=== PATIENT | female | born 1970 | race African-American/Black ===

== ENCOUNTER 2018-05-20 17:51 | Emergency (ER) | payer MEDICAID ==
[~2018-05-20] VITALS: Ht 165.1 cm; Wt 67.1 kg
[2018-05-20 18:39] VITALS: BP 156/76
[2018-05-20] MEDS ORDERED: NAPROXEN 500 MG TABLET PO STA (19:33)
[2018-05-20] MEDS ORDERED: CYCL10TA2 PO (19:34)
[2018-05-20] MEDS ORDERED: NAPR-514 PO (19:34)
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
[2018-05-20] MEDS ORDERED: CYCLOBENZAPRINE 10 MG TABLET. PO ONE (19:45)
== END 2018-05-20 19:41 | disposition home or self-care (01) ==
LOC: ER 17:51
DX: S16.1XXA Strain of muscle, fascia and tendon at neck level, initial encounter (principal); M25.512 Pain in left shoulder; M25.511 Pain in right shoulder; E11.9 Type 2 diabetes mellitus without complications; I10 Essential (primary) hypertension; Z88.8 Allergy status to other drugs, medicaments and biological substances; Z98.890 Other specified postprocedural states; V43.62XA Car passenger injured in collision with other type car in traffic accident, initial encounter; Y93.89 Activity, other specified; Y92.410 Unspecified street and highway as the place of occurrence of the external cause; Y99.8 Other external cause status
CPT/HCPCS: 99283

== ENCOUNTER 2019-06-16 13:11 | Emergency (ER) | payer OTHER ==
[~2019-06-16] VITALS: Ht 165.1 cm; Wt 65.0 kg
[~2019-06-16 13:11] MED LIST: CYCL10TA2 PO; NAPR-514 PO
--- NOTE | 2019-06-16 13:54 | PHYS DOC ---
Past Medical History Past Medical History: Diabetes-Type II, Hypertension Past Surgical History: Additional Past Surgical Histo: HERNIA Smoking Status: Current Every Day Smoker Alcohol Use: None Drug Use: None Adult General Chief Complaint Chief Complaint: COUGH HPI HPI Patient is a 48 year old Female who presents with runny nose, headache, dry cough x3 days. Patient denies fever, chest pain, shortness of air, abdominal pain, nausea, vomiting, weakness, diarrhea, dizziness, vision changes, numbness or tingling, recent travel, around anybody else is been sick. Patient states that when she coughs her chest hurts. She rates her pain and discomfort at a 6 out of 10. She has not taken any medications today. Review of Systems Review of Systems HENT: nasal congestion or denies sore throat [] Respiratory: cough or denies shortness of breath [] Neurologic: headache, denies focal weakness or sensory changes [] All other systems were reviewed and found to be within normal limits, except as documented in this note. Current Medications Current Medications Current Medications Medications (Trade) Dose Ordered Sig/Ame Start Time Stop Time Status Last Admin Dose Admin Insulin Human Regular (HumuLIN R VIAL) 10 unit 1X ONCE 06/16/19 14:45 06/16/19 14:54 DC 06/16/19 15:19 10 UNIT Sodium Chloride 1,000 ml @ 1,000 mls/hr 1X ONCE 06/16/19 14:45 06/16/19 15:44 DC 06/16/19 14:45 1,000 MLS/HR Allergies Allergies Allergies Coded Allergies Type Severity Reaction Last Updated Verified SUNDEEP Inhibitors Allergy Unknown 05/20/18 Yes chlorpromazine Allergy Unknown 05/20/18 Yes diphenhydramine Allergy Unknown 05/20/18 Yes lisinopril Allergy Unknown 05/20/18 Yes Physical Exam Physical Exam Constitutional: Well developed, well nourished, no acute distress, non-toxic appearance. [] HENT: Normocephalic, atraumatic, bilateral external ears normal, oropharynx moist, no oral exudates, nose normal. [] Eyes: PERRLA, EOMI, conjunctiva normal, no discharge. [] Neck: Normal range of motion, no tenderness, supple, no stridor. [] Cardiovascular:Heart rate regular rhythm, no murmur [] Lungs & Thorax: Bilateral breath sounds clear to auscultation [] Abdomen: Bowel sounds normal, soft, no tenderness, no masses, no pulsatile masses. [] Skin: Warm, dry, no erythema, no rash. [] Back: No tenderness, no CVA tenderness. [] Extremities: No tenderness, no cyanosis, no clubbing, ROM intact, no edema. [] Neurologic: Alert and oriented X 3, normal motor function, normal sensory function, no focal deficits noted. [] Psychologic: Affect normal, judgement normal, mood normal. Normal Physical Exam [] Current Patient Data Vital Signs Vital Signs Date Time Temp Pulse Resp B/P (MAP) Pulse Ox O2 Delivery O2 Flow Rate FiO2 06/16/19 13:45 98.0 85 18 132/72 (92) 99 Room Air 98.0 Lab Values Laboratory Tests Test 06/16/19 14:10 06/16/19 16:17 White Blood Count 9.9 x10^3/uL (4.0-11.0) Red Blood Count 4.55 x10^6/uL (3.50-5.40) Hemoglobin 8.9 g/dL (12.0-15.5) L Hematocrit 29.5 % (36.0-47.0) L Mean Corpuscular Volume 65 fL (79-100) L Mean Corpuscular Hemoglobin 20 pg (25-35) L Mean Corpuscular Hemoglobin Concent 30 g/dL (31-37) L Red Cell Distribution Width 16.7 % (11.5-14.5) H Platelet Count 202 x10^3/uL (140-400) Neutrophils (%) (Auto) 79 % (31-73) H Lymphocytes (%) (Auto) 14 % (24-48) L Monocytes (%) (Auto) 6 % (0-9) Eosinophils (%) (Auto) 0 % (0-3) Basophils (%) (Auto) 1 % (0-3) Neutrophils # (Auto) 7.8 x10^3/uL (1.8-7.7) H Lymphocytes # (Auto) 1.4 x10^3/uL (1.0-4.8) Monocytes # (Auto) 0.6 x10^3/uL (0.0-1.1) Eosinophils # (Auto) 0.0 x10^3/uL (0.0-0.7) Basophils # (Auto) 0.1 x10^3/uL (0.0-0.2) Smudge Cells Present Platelet Estimate Adequate (ADEQUATE) Giant Platelets Occ Hypochromasia Mod Poikilocytosis Slight Anisocytosis Slight Microcytosis Marked Target Cells Few Ovalocytes Occ Schistocytes Occ Urine Collection Type Unknown Urine Color Yellow Urine Clarity Clear Urine pH 7.0 (<5.0-8.0) Urine Specific [place] 1.025 (1.000-1.030) Urine Protein Negative mg/dL (NEG-TRACE) Urine Glucose (UA) >=1000 mg/dL (NEG) Urine Ketones (Stick) Negative mg/dL (NEG) Urine Blood Moderate (NEG) Urine Nitrite Negative (NEG) Urine Bilirubin Negative (NEG) Urine Urobilinogen Dipstick 0.2 mg/dL (0.2 mg/dL) Urine Leukocyte Esterase Negative (NEG) Urine RBC 6-10 /HPF (0-2) Urine WBC 0 /HPF (0-4) Urine Squamous Epithelial Cells Occ /LPF Urine Bacteria 0 /HPF (0-FEW) Sodium Level 132 mmol/L (136-145) L Potassium Level 3.5 mmol/L (3.5-5.1) Chloride Level 94 mmol/L (98-107) L Carbon Dioxide Level 27 mmol/L (21-32) Anion Gap 11 (6-14) Blood Urea Nitrogen 10 mg/dL (7-20) Creatinine 1.2 mg/dL (0.6-1.0) H Estimated GFR (Cockcroft-Gault) 57.5 BUN/Creatinine Ratio 8 (6-20) Glucose Level 597 mg/dL (70-99) *H Calcium Level 9.1 mg/dL (8.5-10.1) Total Bilirubin 0.2 mg/dL (0.2-1.0) Aspartate Amino Transferase (AST) 9 U/L (15-37) L Alanine Aminotransferase (ALT) < 6 U/L (14-59) L Alkaline Phosphatase 111 U/L (46-116) Total Protein 8.1 g/dL (6.4-8.2) Albumin 3.1 g/dL (3.4-5.0) L Albumin/Globulin Ratio 0.6 (1.0-1.7) L Acetone Level Neg (NEG) Influenza Type A Antigen Negative (NEGATIVE) Influenza Type B Antigen Negative (NEGATIVE) Glucose (Fingerstick) 247 mg/dL (70-99) H Laboratory Tests 06/16/19 14:10 Laboratory Tests 06/16/19 14:10 EKG EKG [] Radiology/Procedures Radiology/Procedures [] Impressions: [facility] [address] [place] [address] IMAGING REPORT Signed PATIENT: TESSA ALAMO ACCOUNT: [id number] : 1970 LOCATION: ER AGE: 48 SEX: F EXAM STATUS: REG ER ORD. PHYSICIAN: BEATRIZ ALCALA APRN REASON: COUGH PROCEDURE: CHEST PA & LATERAL Chest, PA and Lateral: Technique: PA and lateral views of the chest were obtained. History: Cough. Comparison: None. Findings: The heart and pulmonary vasculature appear within normal limits. The lungs are clear. The pleural margins are clear. Impression: No acute chest process is seen. Electronically signed by: Santiago Bauman MD (06/16/2019 2:28 PM) [id number] DICTATED and SIGNED BY: SANTIAGO BAUMAN MD DATE: 06/16/191427 Course & Med Decision Making Course & Med Decision Making Pertinent Labs and Imaging studies reviewed. (See chart for details) Alert and oriented. Speaks in full clear sentences. Skin pink warm and dry. Ambulatory with a steady gait. Lungs are clear to auscultation all lobes. No extremity swelling. Abdomen soft and nontender. Bilateral tympanic swipe. Throat is pink without exudates or swelling. Blood glucose shows critical high. Patient given 2L NS and 10u insulin. After reexamination blood glucose is down to 247. Patient acetone negative, no anion gap. Patient states she has insulin at home. I have educated the patient on taking her medications and the importance of this. She states her understanding. [] Dragon Disclaimer Dragon Disclaimer This electronic medical record was generated, in whole or in part, using a voice recognition dictation system. Departure Departure Impression: Primary Impression: Hyperglycemia Additional Impression: Cough Disposition: HOME, SELF-CARE Condition: STABLE Referrals: UNKNOWN PCP NAME (PCP) Patient Instructions: Cough, Adult, [id number], Diabetes Meal Planning Guide, Hyperglycemia Additional Instructions: BEGIN TAKING YOUR DIABETES MEDICATIONS. DRINK PLENTY OF FLUIDS. FOLLOW UP WITH PRIMARY CARE PROVIDER. TAKE MEDICATIONS PRESCRIBED. Scripts Loratadine (CLARITIN) 10 Mg Capsule 1 CAP PO DAILY for allergy symptoms for 30 Days, #30 CAP 0 Refills Prov: BEATRIZ ALCALA APRN 06/16/19 Metformin Hcl (METFORMIN HCL) 500 Mg Tablet 500 MG PO DAILY for ANTI-DIABETIC, #30 TAB 0 Refills Prov: BEATRIZ ALCALA APRN 06/16/19 Benzonatate (TESSALON PERLE) 100 Mg Capsule 1 CAP PO TID, #30 CAP Prov: BEATRIZ ALCALA APRN 06/16/19 Problem Qualifiers BEATRIZ ALCALA APRN Jun 16, 2019 13:54
[2019-06-16 14:25] LABS: BASO # 0.1 x10^3/uL (0.0-0.2); BASO % 1 % (0-3); EOS % 0 % (0-3); HEMATOCRIT 29.5 % (36.0-47.0); HEMOGLOBIN 8.9 g/dL (12.0-15.5); LYMPH # 1.4 x10^3/uL (1.0-4.8); LYMPH % 14 % (24-48); MEAN CORPUSCULAR HEMOGLOBIN 20 pg (25-35); MEAN CORPUSCULAR HGB CONC 30 g/dL (31-37); MEAN CORPUSCULAR VOLUME 65 fL (79-100); MONO # 0.6 x10^3/uL (0.0-1.1); MONO % 6 % (0-9); NEUT # 7.8 x10^3/uL (1.8-7.7); NEUT % 79 % (31-73); PLATELET COUNT 202 x10^3/uL (140-400); RED BLOOD COUNT 4.55 x10^6/uL (3.50-5.40); RED CELL DISTRIBUTION WIDTH 16.7 % (11.5-14.5); WHITE BLOOD COUNT 9.9 x10^3/uL (4.0-11.0)
--- NOTE | 2019-06-16 14:31 | RAD ---
Chest, PA and Lateral: Technique: PA and lateral views of the chest were obtained. History: Cough. Comparison: None. Findings: The heart and pulmonary vasculature appear within normal limits. The lungs are clear. The pleural margins are clear. Impression: No acute chest process is seen. Electronically signed by: Santiago Schwartz MD (06/16/2019 2:28 PM) [id number]
[2019-06-16 14:35] LABS: BILIRUBIN,URINE NEGATIVE (NEG); CLARITY,URINE CLEAR; COLOR,URINE YELLOW; NITRITE,URINE NEGATIVE (NEG); PROTEIN,URINE NEGATIVE (NEG-TRACE); UROBILINOGEN,URINE 0.2 mg/dL (0.2 mg/dL)
[2019-06-16 14:41] LABS: ALBUMIN 3.1 g/dL (3.4-5.0); ALBUMIN/GLOBULIN RATIO 0.6 (1.0-1.7); ALK PHOS 111 U/L (46-116); ANION GAP 11 (6-14); AST (SGOT) 9 U/L (15-37); BLOOD UREA NITROGEN 10 mg/dL (7-20); BUN/CREATININE RATIO 8 (6-20); CALCIUM 9.1 mg/dL (8.5-10.1); CARBON DIOXIDE 27 mmol/L (21-32); CHLORIDE 94 mmol/L (98-107); CREATININE 1.2 mg/dL (0.6-1.0); GFR 57.5; POTASSIUM 3.5 mmol/L (3.5-5.1); SODIUM 132 mmol/L (136-145); TOTAL BILIRUBIN 0.2 mg/dL (0.2-1.0); TOTAL PROTEIN 8.1 g/dL (6.4-8.2)
[2019-06-16 14:43] LABS: ALT (SGPT) < 6 U/L (14-59)
[2019-06-16 14:44] LABS: GLUCOSE 597 mg/dL (70-99)
[2019-06-16] MEDS: IV NORMAL SALINE 1000ML BAG 1,000 ML IV ONE ×2 (14:45→15:18)
[2019-06-16 14:47] LABS: BACTERIA,URINE 0 /HPF (0-FEW); SQUAMOUS EPITHELIAL CELL,UR OCC /LPF; WBC,URINE 0 /HPF (0-4)
[2019-06-16 14:55] LABS: INFLUENZA A PATIENT NEGATIVE (NEGATIVE); INFLUENZA B PATIENT NEGATIVE (NEGATIVE)
[2019-06-16] MEDS: INSULIN REGULAR 100 UNIT/ML 3ML VIAL. IV ONE (15:19)
[2019-06-16] MEDS ORDERED: BENZ100C PO (16:25)
[2019-06-16] MEDS ORDERED: METH4TAB2 PO (16:25)
[2019-06-16 16:26] LABS: ANISOCYTOSIS SLIGHT; HYPOCHROMIA MOD; MICROCYTOSIS MARKED; PLT ESTIMATE ADEQUATE (ADEQUATE); POIKILOCYTOSIS SLIGHT
[2019-06-16 16:27] LABS: OVALOCYTES OCC; SCHISTOCYTES OCC; SMUDGE CELLS PRESENT; TARGET CELLS FEW
[2019-06-16] MEDS ORDERED: METF500T16 PO (16:36)
[2019-06-16 16:45] VITALS: BP 195/93
[2019-06-16 16:46] LABS: AMPHETAMINE/METHAMPHETAMINE NEG (NEG); BARBITURATES NEG (NEG); BENZODIAZEPINES NEG (NEG); CANNABINOIDS NEG (NEG); COCAINE NEG (NEG); METHADONE NEG (NEG); OPIATES NEG (NEG); PHENCYCLIDINE NEG (NEG)
[2019-06-16] MEDS ORDERED: LORA10CA PO (16:48)
== END 2019-06-16 16:58 | disposition home or self-care (01) ==
LOC: ER 13:11
DX: R05 Cough (principal); E11.65 Type 2 diabetes mellitus with hyperglycemia; R09.89 Other specified symptoms and signs involving the circulatory and respiratory systems; I10 Essential (primary) hypertension; F17.200 Nicotine dependence, unspecified, uncomplicated; Z88.5 Allergy status to narcotic agent; Z88.8 Allergy status to other drugs, medicaments and biological substances
CPT/HCPCS: 36415; 36600; 71046; 80053; 80307; 81001; 82010; 82962; 85025; 87804; 96361; 96374; 99284; J1815; J7030

== ENCOUNTER 2020-01-17 13:14 | Emergency (ER) | payer OTHER ==
[~2020-01-17 13:14] MED LIST changes: +BENZ100C PO; +LORA10CA PO; +METF500T16 PO; +METH4TAB2 PO
[2020-01-18] MEDS ORDERED: TRAM50TA PO ×2 (02:37→02:40)
[2020-01-18] MEDS ORDERED: CYCL5TAB PO (02:37)
== END 2020-01-17 15:32 | disposition left against medical advice (07) ==
LOC: ER 13:14
DX: M25.559 Pain in unspecified hip (principal); Z53.21 Procedure and treatment not carried out due to patient leaving prior to being seen by health care provider

== ENCOUNTER 2020-01-17 16:12 | Emergency (ER) | payer OTHER ==
[2020-01-18] MEDS ORDERED: CYCL5TAB PO (02:37)
[2020-01-18] MEDS ORDERED: TRAM50TA PO ×2 (02:37→02:40)
== END 2020-01-17 17:21 | disposition left against medical advice (07) ==
LOC: ER 16:12
DX: M25.551 Pain in right hip (principal); Z53.21 Procedure and treatment not carried out due to patient leaving prior to being seen by health care provider

== ENCOUNTER 2020-01-17 23:11 | Emergency (ER) | payer OTHER ==
[~2020-01-17] VITALS: Ht 167.6 cm; Wt 80.0 kg
--- NOTE | 2020-01-17 23:53 | ED.ADGEN ---
Past Medical History Past Medical History: Diabetes-Type II, Hypertension Past Surgical History: Additional Past Surgical Histo: HERNIA Smoking Status: Current Every Day Smoker Alcohol Use: None Drug Use: None General Adult EDM: Chief Complaint: HIP PAIN HPI: HPI: Patient is a 49 year old female presenting with right hip pain. States the pain has been worsening over the past few days, denies any trauma or incident that may have instigated the pain. Patient states she had difficulty walking due to the pain. Denies any fevers or systemic complaints. Feels like her right hip is swollen denies erythema. Denies any previous history of arthritis, gout, pseudogout. She says her blood pressures have been running high recently in the 300s despite being compliant with her insulin regimen Review of Systems: Review of Systems: Constitutional: Denies fever or chills. [] Eyes: Denies change in visual acuity. [] HENT: Denies nasal congestion or sore throat. [] Respiratory: Denies cough or shortness of breath. [] Cardiovascular: Denies chest pain or edema. [] GI: Denies abdominal pain, nausea, vomiting, bloody stools or diarrhea. [] : Denies dysuria. [] Musculoskeletal: Denies back pain, right hip pain Integument: Denies rash. [] Neurologic: Denies headache, focal weakness or sensory changes. [] Endocrine: Denies polyuria or polydipsia. [] Lymphatic: Denies swollen glands. [] Psychiatric: Denies depression or anxiety. [] Current Medications: Current Medications Medications (Trade) Dose Ordered Sig/Ame Start Time Stop Time Status Last Admin Dose Admin Fentanyl Citrate (Fentanyl 2ml Vial) 75 mcg 1X ONCE 01/18/20 00:30 01/18/20 00:31 DC 01/18/20 00:09 75 MCG Potassium Chloride (Klor-Con) 20 meq 1X ONCE 01/18/20 01:30 01/18/20 01:31 DC 01/18/20 01:31 20 MEQ Allergies: Allergies: Allergies Coded Allergies Type Severity Reaction Last Updated Verified SUNDEEP Inhibitors Allergy Intermediate 01/17/20 Yes chlorpromazine Allergy Intermediate 01/17/20 Yes diphenhydramine Allergy Intermediate 01/17/20 Yes lisinopril Allergy Intermediate 01/17/20 Yes Physical Exam: PE: Constitutional: Well developed, well nourished, tearful and moderate acute distress, non-toxic appearance. [] HENT: Normocephalic, atraumatic, bilateral external ears normal, oropharynx moist, no oral exudates, nose normal. [] Eyes: PERRLA, EOMI, conjunctiva normal, no discharge. [] Neck: Normal range of motion, no tenderness, supple, no stridor. [] Cardiovascular:Heart rate regular rhythm, no murmur [] Lungs & Thorax: Bilateral breath sounds clear to auscultation [] Abdomen: Bowel sounds normal, soft, no tenderness, no masses, no pulsatile masses. [] Skin: Warm, dry, no erythema, no rash. [] Back: No tenderness, no CVA tenderness. [] Extremities: Mild swelling over anterior right hip joint, no erythema noted. Pain with passive range of motion and logroll. Neurologic: Alert and oriented X 3, normal motor function, normal sensory function, no focal deficits noted. [] Psychologic: Affect normal, judgement normal, mood normal. [] Current Patient Data: Labs: Laboratory Tests Test 01/17/20 23:59 01/18/20 00:14 01/18/20 00:33 01/18/20 01:54 White Blood Count 6.0 x10^3/uL (4.0-11.0) Red Blood Count 4.75 x10^6/uL (3.50-5.40) Hemoglobin 10.4 g/dL (12.0-15.5) L Hematocrit 33.4 % (36.0-47.0) L Mean Corpuscular Volume 70 fL (79-100) L Mean Corpuscular Hemoglobin 22 pg (25-35) L Mean Corpuscular Hemoglobin Concent 31 g/dL (31-37) Red Cell Distribution Width 17.9 % (11.5-14.5) H Platelet Count 273 x10^3/uL (140-400) Neutrophils (%) (Auto) 48 % (31-73) Lymphocytes (%) (Auto) 40 % (24-48) Monocytes (%) (Auto) 10 % (0-9) H Eosinophils (%) (Auto) 1 % (0-3) Basophils (%) (Auto) 1 % (0-3) Neutrophils # (Auto) 2.9 x10^3/uL (1.8-7.7) Lymphocytes # (Auto) 2.4 x10^3/uL (1.0-4.8) Monocytes # (Auto) 0.6 x10^3/uL (0.0-1.1) Eosinophils # (Auto) 0.1 x10^3/uL (0.0-0.7) Basophils # (Auto) 0.1 x10^3/uL (0.0-0.2) Platelet Estimate Pending Urine Collection Type Unknown Urine Color Yellow Urine Clarity Clear Urine pH 6.5 (<5.0-8.0) Urine Specific [place] 1.010 (1.000-1.030) Urine Protein 100 mg/dL (NEG-TRACE) Urine Glucose (UA) 100 mg/dL (NEG) Urine Ketones (Stick) Negative mg/dL (NEG) Urine Blood Negative (NEG) Urine Nitrite Negative (NEG) Urine Bilirubin Negative (NEG) Urine Urobilinogen Dipstick 0.2 mg/dL (0.2 mg/dL) Urine Leukocyte Esterase Negative (NEG) Urine RBC 1-2 /HPF (0-2) Urine WBC 1-4 /HPF (0-4) Urine Squamous Epithelial Cells Mod /LPF Urine Bacteria Moderate /HPF (0-FEW) Urine Hyaline Casts Occasional /HPF Urine Mucus Slight /LPF Sodium Level 139 mmol/L (136-145) Potassium Level 3.0 mmol/L (3.5-5.1) L Chloride Level 103 mmol/L (98-107) Carbon Dioxide Level 27 mmol/L (21-32) Anion Gap 9 (6-14) Blood Urea Nitrogen 11 mg/dL (7-20) Creatinine 1.0 mg/dL (0.6-1.0) Estimated GFR (Cockcroft-Gault) 70.7 BUN/Creatinine Ratio 11 (6-20) Glucose Level 69 mg/dL (70-99) L Calcium Level 8.9 mg/dL (8.5-10.1) Total Bilirubin 0.2 mg/dL (0.2-1.0) Aspartate Amino Transferase (AST) 16 U/L (15-37) Alanine Aminotransferase (ALT) 13 U/L (14-59) L Alkaline Phosphatase 70 U/L (46-116) Creatine Kinase 60 U/L (26-192) Myoglobin 21 ng/mL (9-82) C-Reactive Protein, Quantitative < 0.5 mg/L (0-3.3) Total Protein 7.7 g/dL (6.4-8.2) Albumin 3.1 g/dL (3.4-5.0) L Albumin/Globulin Ratio 0.7 (1.0-1.7) L Glucose (Fingerstick) 75 mg/dL (70-99) Laboratory Tests 01/17/20 23:59 Laboratory Tests 01/18/20 00:33 Vital Signs: Vital Signs Date Time Temp Pulse Resp B/P (MAP) Pulse Ox O2 Delivery O2 Flow Rate FiO2 01/18/20 02:08 78 153/78 (103) 100 Room Air 01/18/20 00:09 16 01/17/20 23:20 97.9 97.9 EKG: EKG: [] Heart Score: Risk Factors: Risk Factors: DM, Current or recent (<one month) smoker, HTN, HLP, family history of CAD, obesity. Risk Scores: Score 0 - 3: 2.5% MACE over next 6 weeks - Discharge Home Score 4 - 6: 20.3% MACE over next 6 weeks - Admit for Clinical Observation Score 7 - 10: 72.7% MACE over next 6 weeks - Early Invasive Strategies Radiology/Procedures: Radiology/Procedures: X-ray right hip and pelvis negative per radiologist verbal report [] Course & Med Decision Making: Course & Med Decision Making Pertinent Labs and Imaging studies reviewed. (See chart for details) Inflammatory markers negative, tenderness over anterior right thigh radiating down. Discussed with patient likely muscle spasm but given return precautions in the case of hematoma or spontaneous bleed secondary to anticoagulant use. Unlikely due to patient having no history of trauma to the area and pain easily controlled and patient not having pain when distracted. Pain is worse with palpation and not exacerbated by passive stretch. [] Dragon Disclaimer: Dragon Disclaimer: This electronic medical record was generated, in whole or in part, using a voice recognition dictation system. Departure Departure Impression: Primary Impression: Right thigh pain Disposition: 01 DC HOME SELF CARE/HOMELESS Condition: LEFT WITHOUT BEING SEEN Referrals: NO PCP (PCP) Prov [facility] Patient Instructions: Muscle Cramps Scripts Tramadol Hcl (TRAMADOL HCL) 50 Mg Tablet 50 MG PO Q6HRS PRN for PAIN for 3 Days, #10 TAB Prov: BERNADINE BINGHAM MD 01/18/20 Cyclobenzaprine Hcl (CYCLOBENZAPRINE HCL) 5 Mg Tablet 1 TAB PO TID for muscle pain for 3 Days, #9 TAB Prov: BERNADINE BINGHAM MD 01/18/20 BERNADINE BINGHAM MD Jan 17, 2020 23:53
[2020-01-18 00:20] LABS: BASO # 0.1 x10^3/uL (0.0-0.2); BASO % 1 % (0-3); EOS # 0.1 x10^3/uL (0.0-0.7); EOS % 1 % (0-3); HEMATOCRIT 33.4 % (36.0-47.0); HEMOGLOBIN 10.4 g/dL (12.0-15.5); LYMPH # 2.4 x10^3/uL (1.0-4.8); LYMPH % 40 % (24-48); MEAN CORPUSCULAR HEMOGLOBIN 22 pg (25-35); MEAN CORPUSCULAR HGB CONC 31 g/dL (31-37); MEAN CORPUSCULAR VOLUME 70 fL (79-100); MONO # 0.6 x10^3/uL (0.0-1.1); MONO % 10 % (0-9); NEUT # 2.9 x10^3/uL (1.8-7.7); NEUT % 48 % (31-73); PLATELET COUNT 273 x10^3/uL (140-400); RED BLOOD COUNT 4.75 x10^6/uL (3.50-5.40); RED CELL DISTRIBUTION WIDTH 17.9 % (11.5-14.5)
[2020-01-18 00:21] LABS: BILIRUBIN,URINE NEGATIVE (NEG); CLARITY,URINE CLEAR; COLOR,URINE YELLOW; NITRITE,URINE NEGATIVE (NEG); PH,URINE 6.5 (<5.0-8.0); PROTEIN,URINE 100 mg/dL (NEG-TRACE); UROBILINOGEN,URINE 0.2 mg/dL (0.2 mg/dL)
[2020-01-18] MEDS ORDERED: fentaNYL PF VIAL 100 MCG/2 ML VIAL IVP ONE (00:30)
[2020-01-18 00:35] LABS: BACTERIA,URINE MODERATE /HPF (0-FEW); HYALINE CASTS, URINE OCCASIONAL /HPF
[2020-01-18 00:48] LABS: ANION GAP 9 (6-14); BLOOD UREA NITROGEN 11 mg/dL (7-20); BUN/CREATININE RATIO 11 (6-20); CALCIUM 8.9 mg/dL (8.5-10.1); CARBON DIOXIDE 27 mmol/L (21-32); CHLORIDE 103 mmol/L (98-107); GFR 70.7; GLUCOSE 69 mg/dL (70-99); SODIUM 139 mmol/L (136-145)
[2020-01-18 00:59] LABS: ALBUMIN 3.1 g/dL (3.4-5.0); ALBUMIN/GLOBULIN RATIO 0.7 (1.0-1.7); ALK PHOS 70 U/L (46-116); ALT (SGPT) 13 U/L (14-59); AST (SGOT) 16 U/L (15-37); CREATINE KINASE 60 U/L (26-192); MYOGLOBIN 21 ng/mL (9-82); TOTAL BILIRUBIN 0.2 mg/dL (0.2-1.0); TOTAL PROTEIN 7.7 g/dL (6.4-8.2)
[2020-01-18 01:04] LABS: C-REACTIVE PROTEIN < 0.5 mg/L (0-3.3)
[2020-01-18] MEDS ORDERED: POTASSIUM CHLORIDE 20 MEQ TABLET.ER. PO ONE (01:30)
[2020-01-18] MEDS ORDERED: TRAM50TA PO ×2 (02:37→02:40)
[2020-01-18] MEDS ORDERED: CYCL5TAB PO (02:37)
[2020-01-18 02:59] VITALS: BP 167/79
[2020-01-18 03:52] LABS: ANISOCYTOSIS SLIGHT; HYPOCHROMIA MOD; MICROCYTOSIS MOD; PLT ESTIMATE ADEQUATE (ADEQUATE)
--- NOTE | 2020-01-18 08:31 | RAD ---
EXAMINATION: HIP RIGHT 2V WITH PELVIS CLINICAL HISTORY: Pain TECHNIQUE: HIP RIGHT 2V WITH PELVIS Number of Images/Views: 3 COMPARISON: None FINDINGS: Joint space alignment maintained in the right hip. Limited evaluation of the left hip unremarkable. Pubic symphysis and SI joints maintained. No acute fracture. IMPRESSION: No acute osseous abnormality right hip. Electronically signed by: Ovidio Umanzor DO (01/18/2020 8:28 AM) [id number]
== END 2020-01-18 03:06 | disposition home or self-care (01) ==
LOC: ER 23:11
DX: M79.651 Pain in right thigh (principal); M25.551 Pain in right hip; R60.0 Localized edema; E11.9 Type 2 diabetes mellitus without complications; I10 Essential (primary) hypertension; F17.200 Nicotine dependence, unspecified, uncomplicated; Z98.890 Other specified postprocedural states; Z88.6 Allergy status to analgesic agent; Z88.8 Allergy status to other drugs, medicaments and biological substances
CPT/HCPCS: 36415; 73502; 80053; 81001; 82550; 82962; 83874; 85025; 86140; 87086; 96374; 99285; J3010

== ENCOUNTER 2020-02-28 11:13 | Emergency (ER) | payer OTHER ==
[~2020-02-28 11:13] MED LIST changes: +CYCL5TAB PO; +TRAM50TA PO
== END 2020-02-28 13:22 | disposition left against medical advice (07) ==
LOC: ER 11:13
DX: M25.559 Pain in unspecified hip (principal); Z53.21 Procedure and treatment not carried out due to patient leaving prior to being seen by health care provider

== ENCOUNTER 2020-03-02 01:36 | Emergency (ER) | payer OTHER ==
[~2020-03-02] VITALS: Ht 165.1 cm; Wt 67.3 kg
[2020-03-02 01:55] VITALS: BP 166/79
[2020-03-02] MEDS ORDERED: OXYC1TAB15 PO (02:32)
[2020-03-02] MEDS ORDERED: ORPH100T PO (02:32)
[2020-03-02] MEDS ORDERED: NAPR-695 PO (02:32)
--- NOTE | 2020-03-02 02:32 | PHYS DOC ---
Past Medical History Past Medical History: Diabetes-Type II, Hypertension Past Surgical History: Additional Past Surgical Histo: HERNIA Smoking Status: Current Every Day Smoker Alcohol Use: None Drug Use: None General Adult EDM: Chief Complaint: LOWER EXT PAIN HPI: HPI: Patient is a 49 year old female who presents with right hip and leg pain that became worse about 2 days ago. The pt has had this pain before but she states that it is getting worse. The pain wakes her up at night and that's what brought her in tonight. The pain radiates down her leg into her feet and is rated >10/10. Pt states that muscle relaxers usually help. Ice, heat, and tylenol do n ot help. Moving makes the pain worse. Pt denies any numbness or tingling. Denies trauma. Patient has been seen for same 01/17/20 x 2 with laboratory and XRs obtained per [facility] review. Review of Systems: Review of Systems: Constitutional: Denies fever or chills Eyes: Denies redness or eye pain HENT: Denies nasal congestion or sore throat Respiratory: Denies cough or shortness of breath Cardiovascular: Denies chest pain or palpitations GI: Denies abdominal pain, nausea, or vomiting : Denies dysuria or hematuria Musculoskeletal: Denies back pain, endorses hip and anterior right thigh pain Integument: Denies rash or skin lesions Neurologic: Denies headache, focal weakness or sensory changes Complete systems were reviewed and found to be within normal limits, except as documented in this note. Current Medications: Current Medications Medications (Trade) Dose Ordered Sig/Ame Start Time Stop Time Status Last Admin Dose Admin Dexamethasone (Decadron) 10 mg 1X ONCE 03/02/20 03:00 03/02/20 03:01 Ketorolac Tromethamine (Toradol 30mg Vial) 30 mg 1X ONCE 03/02/20 03:00 03/02/20 03:01 Orphenadrine Citrate (Norflex) 60 mg 1X ONCE 03/02/20 03:00 03/02/20 03:01 Allergies: Allergies: Allergies Coded Allergies Type Severity Reaction Last Updated Verified SUNDEEP Inhibitors Allergy Intermediate 01/17/20 Yes chlorpromazine Allergy Intermediate 01/17/20 Yes diphenhydramine Allergy Intermediate 01/17/20 Yes lisinopril Allergy Intermediate 10/22/20 Yes Physical Exam: PE: Constitutional: Well developed, well nourished, appears in pain, non-toxic appearance HENT: Normocephalic, atraumatic Neck: Normal range of motion, no tenderness, supple Lungs & Thorax: No respiratory distress, equal chest rise and fall Abdomen: Soft, no tenderness Skin: Warm, dry, no erythema, no rash Back: No tenderness, no CVA tenderness Extremities: no edema, limited ROM in right lower extremity secondary to pain, right LE tender to palpation proximally on the anterior aspect, slight muscle tension on lateral aspect of right hip, no deformity, limb neurovascularly intac t. Neurologic: Alert and oriented X 3, normal motor function, normal sensory function, no focal deficits noted Psychologic: Affect normal, judgment normal Current Patient Data: Vital Signs: Vital Signs Date Time Temp Pulse Resp B/P (MAP) Pulse Ox O2 Delivery O2 Flow Rate FiO2 03/02/20 01:55 98.0 99 16 166/79 (108) 100 Room Air 98.0 EKG: EKG: [] Radiology/Procedures: Radiology/Procedures: [] Course & Med Decision Making: Course & Med Decision Making 49 yo female pt presents with right hip and leg pain that started getting worse about 2 days ago. Pt has been seen in ED for same. During that visit on 01/17/20 , pt had a full workup with a hip and pelvis xray that showed no acute abnormalities. Today pt has no numbness or tingling and is neurovascularly intact in lower extremities. Pt symptomatically treated. Pt advised to follow up with a pain medicine doctor to control her chronic pain. Patient stable for discharge with outpatient follow-up with PCP/pain management. Pain management referral provided.. Discussed findings and plan with patient, who acknowledges understanding and agreement. Franco Disclaimer: Franco Disclaimer: This electronic medical record was generated, in whole or in part, using a voice recognition dictation system. Departure Departure Impression: Primary Impression: Pain in right thigh Disposition: 01 DC HOME SELF CARE/HOMELESS Condition: STABLE Referrals: NO PCP (PCP) MANJEET GILLESPIE MD Patient Instructions: Chronic Pain, Chronic Pain Management Scripts Oxycodone/Apap 5-325 (PERCOCET 5-325 MG TABLET ) 1 Each Tablet 0.5-1 TAB PO PRN Q6HRS PRN for PAIN, #10 TAB 0 Refills Prov: KING MYEER DO 03/02/20 Orphenadrine Citrate (ORPHENADRINE CITRATE) 100 Mg Tablet.er 1 TAB PO BID PRN for MUSCLE SPASMS, #14 TAB Prov: KING MEYER DO 03/02/20 Naproxen (NAPROXEN) 375 Mg Tablet 375 MG PO TID PRN PRN for PAIN, #30 TAB-CAP Prov: KING MEYER DO 03/02/20 KING MEYER DO Mar 02, 2020 02:32
[2020-03-02] MEDS ORDERED: KETOROLAC 30 MG/ML VIAL. IM ONE (03:00)
[2020-03-02] MEDS ORDERED: DEXAMETHASONE 4 MG TABLET PO ONE (03:00)
[2020-03-02] MEDS ORDERED: ORPHENADRINE CITRATE 60 MG/2 ML VIAL. IM ONE (03:00)
== END 2020-03-02 02:59 | disposition home or self-care (01) ==
LOC: ER 01:36
DX: M79.651 Pain in right thigh (principal); M25.551 Pain in right hip; M79.604 Pain in right leg; E11.9 Type 2 diabetes mellitus without complications; I10 Essential (primary) hypertension; F17.200 Nicotine dependence, unspecified, uncomplicated; Z98.890 Other specified postprocedural states; Z88.5 Allergy status to narcotic agent; Z88.8 Allergy status to other drugs, medicaments and biological substances
CPT/HCPCS: 96372; 99283; J1885

== ENCOUNTER 2020-05-15 18:20 | Emergency (ER) | payer MEDICAID, OTHER ==
[~2020-05-15] VITALS: Ht 165.1 cm; Wt 74.0 kg
[~2020-05-15 18:20] MED LIST changes: +NAPR-695 PO; +ORPH100T PO; +OXYC1TAB15 PO
[2020-05-15] MEDS ORDERED: ONDANSETRON PF 4 MG/2 ML VIAL. IVP ONE (18:45)
[2020-05-15] MEDS ORDERED: IV NORMAL SALINE 1000ML BAG 1,000 ML IV ONE (18:45)
[2020-05-15] MEDS ORDERED: FAMOTIDINE 20 MG/2 ML VIAL IVP ONE (18:45)
[2020-05-15] MEDS ORDERED: ASPIRIN 325 MG TABLET PO ONE (18:45)
[2020-05-15] MEDS ORDERED: fentaNYL PF VIAL 100 MCG/2 ML VIAL IV ONE ×2 (18:45→20:15)
[2020-05-15 18:47] LABS: BASO # 0.1 x10^3/uL (0.0-0.2); BASO % 1 % (0-3); EOS # 0.1 x10^3/uL (0.0-0.7); EOS % 1 % (0-3); HEMATOCRIT 32.3 % (36.0-47.0); HEMOGLOBIN 10.4 g/dL (12.0-15.5); LYMPH % 21 % (24-48); MEAN CORPUSCULAR HEMOGLOBIN 25 pg (25-35); MEAN CORPUSCULAR HGB CONC 32 g/dL (31-37); MEAN CORPUSCULAR VOLUME 78 fL (79-100); MONO # 0.6 x10^3/uL (0.0-1.1); MONO % 6 % (0-9); NEUT # 6.8 x10^3/uL (1.8-7.7); NEUT % 71 % (31-73); PLATELET COUNT 305 x10^3/uL (140-400); RED BLOOD COUNT 4.16 x10^6/uL (3.50-5.40); RED CELL DISTRIBUTION WIDTH 14.6 % (11.5-14.5); WHITE BLOOD COUNT 9.5 x10^3/uL (4.0-11.0)
[2020-05-15 18:57] LABS: PROTHROMBIN TIME PATIENT 12.1 SEC (11.7-14.0)
[2020-05-15 18:59] LABS: CALCIUM 9.3 mg/dL (8.5-10.1); CREATININE 1.3 mg/dL (0.6-1.0); GFR 52.3; POTASSIUM 3.2 mmol/L (3.5-5.1)
--- NOTE | 2020-05-15 19:02 | PHYS DOC ---
Past Medical History Past Medical History: Diabetes-Type II, Hypertension Additional Past Medical Histor: Pulmonary embolism Past Surgical History: Additional Past Surgical Histo: HERNIA Smoking Status: Former Smoker Alcohol Use: None Drug Use: None General Adult EDM: Chief Complaint: CHEST PAIN-NON CARDIAC NATURE HPI: HPI: Patient is a 49 year old female who presents with chest pain. The pain began last night and is a constant dull burning pain in the center of her thorax. The pain does not radiate and has not gotten worse, but after almost 24 hours the patient wanted to come to the ED to get it checked. She notes a history of reflux but is not currently on any reflux medications. She notes being a little short of breath, but thinks it is due to pain from respirations. The patient also notes right proximal thigh pain of several months duration. She says it has been very consistent during this time and occasionally radiates down her right leg and into her hips bilaterally. She also notes some occasional mild leg swelling. She has a history of pulmonary embolism for which she was treated at [facility] a year ago, after which they put her on Xarelto which she still takes. Review of Systems: Review of Systems: Constitutional: Denies fever or chills Eyes: Denies redness or eye pain HENT: Denies nasal congestion or sore throat Respiratory: Denies cough notes some shortness of breath Cardiovascular: Notes chest pain denies palpitations GI: Denies abdominal pain, nausea, or vomiting : Denies dysuria or hematuria Musculoskeletal: Denies back pain or joint pain. Notes right proximal leg pain Integument: Denies rash or skin lesions Neurologic: Denies headache, focal weakness or sensory changes Complete systems were reviewed and found to be within normal limits, except as documented in this note. Heart Score: HEART Score for Chest Pain: HEART Score for Chest Pain Response (Comments) Value History Slighlty/Non-Suspicious 0 ECG Normal 0 Age >45 - < 65 1 Risk Factors >3 Risk Factors or Hx CAD 2 Troponin < Normal Limit 0 Total 3 Risk Factors: Risk Factors: DM, Current or recent (<one month) smoker, HTN, HLP, family history of CAD, obesity. Risk Scores: Score 0 - 3: 2.5% MACE over next 6 weeks - Discharge Home Score 4 - 6: 20.3% MACE over next 6 weeks - Admit for Clinical Observation Score 7 - 10: 72.7% MACE over next 6 weeks - Early Invasive Strategies Family History: Family History: Mother of lung cancer and also had diabetes mellitus and hypertension Current Medications: Current Medications Medications (Trade) Dose Ordered Sig/Ame Start Time Stop Time Status Last Admin Dose Admin Aspirin (Summer Aspirin) 325 mg 1X ONCE 05/15/20 18:45 05/15/20 18:46 DC Famotidine (Pepcid Vial) 20 mg 1X ONCE 05/15/20 18:45 05/15/20 18:48 DC Fentanyl Citrate (Fentanyl 2ml Vial) 50 mcg 1X ONCE 05/15/20 18:45 05/15/20 18:48 DC Ondansetron HCl (Zofran) 4 mg 1X ONCE 05/15/20 18:45 05/15/20 18:48 DC Sodium Chloride 1,000 ml @ 1,000 mls/hr 1X ONCE 05/15/20 18:45 05/15/20 19:44 Allergies: Allergies: Allergies Coded Allergies Type Severity Reaction Last Updated Verified SUNDEEP Inhibitors Allergy Intermediate 01/17/20 Yes chlorpromazine Allergy Intermediate 01/17/20 Yes diphenhydramine Allergy Intermediate 01/17/20 Yes lisinopril Allergy Intermediate 01/17/20 Yes Physical Exam: PE: Constitutional: Well developed, well nourished, no acute distress, non-toxic appearance HENT: Normocephalic, atraumatic Eyes: PERRL, EOMI, conjunctiva normal, no discharge Neck: Normal range of motion, no tenderness, supple Lungs & Thorax: No respiratory distress, equal chest rise and fall. Centralized chest pain and discomfort. Abdomen: Soft, no tenderness Skin: Warm, dry, no erythema, no rash Back: No tenderness, no CVA tenderness Extremities: Right proximal thigh tenderness, ROM intact, no edema Neurologic: Alert and oriented X 3, normal motor function, normal sensory function, no focal deficits noted Psychologic: Affect normal, judgment normal EKG: EKG: Normal sinus rhythm [address] elevation or T wave depression. J-point elevation noted in several anterior leads. QRS 86 ms. QT/QTc 342/475 ms. Radiology/Procedures: Radiology/Procedures: PROCEDURE: CT ANGIOGRAPHY CHEST Study: CT CHEST WITH CONTRAST - PULMONARY ANGIOGRAM History: Chest pain, history of PE Comparison: None Technique: Helical CT of the chest performed after the administration of 90 mL Omnipaque 350 intravenous contrast and timed for angiographic evaluation of the pulmonary arteries per PE protocol. Coronal and sagittal 3D MIP reformations were obtained. One or more of the following individualized dose reduction techniques were utilized for this examination: 1. Automated exposure control 2. Adjustment of the mA and/or kV according to patient size 3. Use of iterative reconstruction technique. Findings: Pulmonary Arteries: Contrast bolus is adequate. No acute pulmonary embolism. Heart/Systemic Vasculature: The heart is normal in size. No pericardial effusion. Thoracic aorta is normal in caliber. Mild calcifications in the aortic arch. Mediastinum: No mediastinal or hilar lymphadenopathy. Lungs: There is a 4 mm pulmonary nodule in the right upper lobe (image 57). 4 mm juxta fissural nodule in the right middle lobe (image 83). There are 2 nodules in the posterior medial left lower lobe measuring 3 mm and 5 mm (image 83 and 85). The lungs are otherwise clear. There is no pleural effusion. Neck/Axilla/Body Wall: No axillary lymphadenopathy. There are bilateral thyroid nodules, on the right measuring 1.5 cm in the left measuring 2 cm. Upper Abdomen: Visualized portion of upper abdomen is normal. Bones: No acute osseous abnormality. IMPRESSION: 1. No acute pulmonary embolism. 2. Multiple small right pulmonary nodules measuring up to 5 mm. In a high risk patient, optional twelve-month follow-up CT could be obtained to ensure stability. 3. Bilateral thyroid nodules measuring up to 2 cm. Recommend nonemergent thyroid ultrasound to further evaluate. According to Fleischner Society Guidelines for solid pulmonary nodules (Radiology 2017; 000:1?16): In low risk multiple nodule patient: <6mm - No follow up required. 6-8mm - CT at 6-12 months, then consider CT at 18-24 months >8mm - CT at 6-12 months, then consider CT at 18-24 months Use most suspicious nodule as guide to management. Follow-up intervals may vary according to size and risk In high risk multiple nodule patient: <6mm - Optional 12 month follow up. 6-8mm - CT at 3-6 months, then CT at 18-24 months >8mm - CT at 3-6 months, then CT at 18-24 months Use most suspicious nodule as guide to management. Follow-up intervals may vary according to size and risk Electronically signed by: Barbara Heath MD (05/15/2020 7:33 PM) [id number] PROCEDURE: VENOUS LOWER EXTREMITY RIGHT US DPLX VENOUS EXTREMITY LOWER RT History: Reason: right leg pain, hx of PE, / Spl. Instructions: / History: Comparison: None. Discussion: Multiple longitudinal and transverse high resolution real-time images of the venous system of right lower extremity were obtained with color and Doppler sampling. The common femoral, superficial femoral, popliteal and proximal calf veins are all patent and demonstrate normal flow and compressibility. Normal respiratory phasicity and augmentation is present. Impression: 1. No evidence of deep vein thrombosis. Electronically signed by: Rj Kiser DO (05/15/2020 8:21 PM) [facility] Course & Med Decision Making: Course & Med Decision Making Pertinent Labs and Imaging studies reviewed. (See chart for details) Patient is a 49-year-old female presenting with chest pain. She had pain for the last 24 hours and decided to come to the ED today. The pain is centralized and does not radiate, she says it is dull and slightly burning in nature. She has a history of GERD but is not currently on any medications. She recently had a stress test done in February which was negative. Patient also had some shortness of breath and right proximal thigh pain. She has a history of pulmonary embolism that was treated at the [facility] last year, so a CT angiogram was ordered and came back with some incidental findings related to thyroid and lung nodules, but was negative for pulmonary embolism. She says she is due to have an outpatient MRI for her right hip to evaluate for possible pinched nerve. Troponin and repeat troponin came back within normal limits. Her heart score was 3, so options were discussed with the patient and she elected to be discharged. Shared decision-making was utilized. She will be given Pepcid for possible heartburn and naproxen for her thigh pain, and told to follow-up with providers if chest pain does not resolve and to continue to monitor her right hip. Patient stable for discharge with outpatient follow-up with PCP. Discussed findings and plan with patient, who acknowledges understanding and agreement. Franco Disclaimer: Franco Disclaimer: This electronic medical record was generated, in whole or in part, using a voice recognition dictation system. Departure Departure Impression: Primary Impression: Chest pain Qualified Codes: R07.9 - Chest pain, unspecified Additional Impressions: Pain in right thigh Pulmonary nodules Thyroid nodule Disposition: 01 DC HOME SELF CARE/HOMELESS Condition: STABLE Referrals: NO PCP (PCP) ALEXUS JACOBSON MD, SCOTT S MD Patient Instructions: Chest Pain (Nonspecific), [id number], Hip Pain, Pulmonary Nodule, [id number] Additional Instructions: Take CT results to your family physician for further evaluation and possible reimaging. Scripts Famotidine (PEPCID) 20 Mg Tablet 20 MG PO BID, #20 TAB Prov: KING MEYER DO 05/15/20 Naproxen (NAPROXEN) 375 Mg Tablet 375 MG PO TID PRN PRN for PAIN, #14 TAB Prov: KING MEYER DO 05/15/20 KING MEYER DO May 15, 2020 19:02
[2020-05-15 19:06] LABS: ALBUMIN 3.6 g/dL (3.4-5.0); ALBUMIN/GLOBULIN RATIO 0.7 (1.0-1.7); MAGNESIUM 2.1 mg/dL (1.8-2.4); TOTAL BILIRUBIN 0.3 mg/dL (0.2-1.0); TOTAL PROTEIN 8.5 g/dL (6.4-8.2)
[2020-05-15] MEDS ORDERED: IOHEXOL 350 MG/ML 100 ML VIAL. IV ONE (19:15)
[2020-05-15] MEDS ORDERED: CONTRAST GIVEN. MC PRN (19:15)
[2020-05-15 19:19] LABS: D-DIMER 1.4 ug/mlFEU (0.00-0.50)
--- NOTE | 2020-05-15 19:35 | RAD ---
Study: CT CHEST WITH CONTRAST - PULMONARY ANGIOGRAM History: Chest pain, history of PE Comparison: None Technique: Helical CT of the chest performed after the administration of 90 mL Omnipaque 350 intrave nous contrast and timed for angiographic evaluation of the pulmonary arteries per PE protocol. Dixon l and sagittal 3D MIP reformations were obtained. One or more of the following individualized dose reduction techniques were utilized for this examinat ion: 1. Automated exposure control 2. Adjustment of the mA and/or kV according to patient size 3. Use of iterative reconstruction technique. Findings: Pulmonary Arteries: Contrast bolus is adequate. No acute pulmonary embolism. Heart/Systemic Vasculature: The heart is normal in size. No pericardial effusion. Thoracic aorta is n ormal in caliber. Mild calcifications in the aortic arch. Mediastinum: No mediastinal or hilar lymphadenopathy. Lungs: There is a 4 mm pulmonary nodule in the right upper lobe (image 57). 4 mm juxta fissural nodul e in the right middle lobe (image 83). There are 2 nodules in the posterior medial left lower lobe me asuring 3 mm and 5 mm (image 83 and 85). The lungs are otherwise clear. There is no pleural effusion. Neck/Axilla/Body Wall: No axillary lymphadenopathy. There are bilateral thyroid nodules, on the right measuring 1.5 cm in the left measuring 2 cm. Upper Abdomen: Visualized portion of upper abdomen is normal. Bones: No acute osseous abnormality. IMPRESSION: 1. No acute pulmonary embolism. 2. Multiple small right pulmonary nodules measuring up to 5 mm. In a high risk patient, optional twel ve-month follow-up CT could be obtained to ensure stability. 3. Bilateral thyroid nodules measuring up to 2 cm. Recommend nonemergent thyroid ultrasound to [facility] r evaluate. According to Fleischner Society Guidelines for solid pulmonary nodules (Radiology 2017; 000:1?16): In low risk multiple nodule patient: <6mm - No follow up required. 6-8mm - CT at 6-12 months, then consider CT at 18-24 months >8mm - CT at 6-12 months, then consider CT at 18-24 months Use most suspicious nodule as guide to management. Follow-up intervals may vary according to size and risk In high risk multiple nodule patient: <6mm - Optional 12 month follow up. 6-8mm - CT at 3-6 months, then CT at 18-24 months >8mm - CT at 3-6 months, then CT at 18-24 months Use most suspicious nodule as guide to management. Follow-up intervals may vary according to size and risk 2. Electronically signed by: Barbara Heath MD (05/15/2020 7:33 PM) [id number]
[2020-05-15] MEDS ORDERED: DEXAMETHASONE SOD PHOS 4 MG/ML VIAL IVP ONE (19:45)
--- NOTE | 2020-05-15 19:51 | EKG ---
[facility] [address] [place] [address] Test Date: 2020-05-15 Test Time: 18:31:17 Pat Name: TESSA ALAMO Department: Room: Gender: F Tim[employer] Management Assistant: : [id number] Requested By: KING MEYER Order Number: [id number] Reading MD: Measurements Intervals [place] Rate: 113 P: 63 CT: 164 QRS: 28 QRSD: 86 T: 121 QT: 342 QTc: 475 Interpretive Statements SINUS TACHYCARDIA QRS(T) CONTOUR ABNORMALITY CONSISTENT WITH SEPTAL INFARCT PROBABLY OLD ST & T ABNORMALITY, CONSIDER HIGH LATERAL ISCHEMIA OR LEFT VENTRICULAR STRAIN ABNORMAL ECG RI6.02 No previous ECG available for comparison
[2020-05-15 20:03] LABS: BILIRUBIN,URINE NEGATIVE (NEG); CLARITY,URINE CLEAR; COLOR,URINE YELLOW; NITRITE,URINE NEGATIVE (NEG); PROTEIN,URINE 30 mg/dL (NEG-TRACE); UROBILINOGEN,URINE 0.2 mg/dL (0.2 mg/dL)
[2020-05-15 20:14] LABS: BACTERIA,URINE 0 /HPF (0-FEW); RBC,URINE OCC /HPF (0-2); WBC,URINE OCC /HPF (0-4)
[2020-05-15] MEDS ORDERED: hydrOXYzine IM 50 MG/ML VIAL IM ONE (20:15)
--- NOTE | 2020-05-15 20:24 | RAD ---
US DPLX VENOUS EXTREMITY LOWER RT History: Reason: right leg pain, hx of PE, / Spl. Instructions: / History: Comparison: None. Discussion: Multiple longitudinal and transverse high resolution real-time images of the venous system of right l ower extremity were obtained with color and Doppler sampling. The common femoral, superficial femoral , popliteal and proximal calf veins are all patent and demonstrate normal flow and compressibility. N ormal respiratory phasicity and augmentation is present. Impression: 1. No evidence of deep vein thrombosis. Electronically signed by: Rj Kiser DO (05/15/2020 8:21 PM) [facility]
[2020-05-15] MEDS ORDERED: POTASSIUM CHLORIDE 20 MEQ TABLET.ER. PO ONE (21:00)
[2020-05-15] MEDS ORDERED: ORPHENADRINE CITRATE 60 MG/2 ML VIAL. IV ONE (22:00)
[2020-05-15] MEDS ORDERED: KETOROLAC 15 MG/ML VIAL. IVP ONE (22:00)
[2020-05-15 22:15] VITALS: BP 158/72
[2020-05-15] MEDS ORDERED: NAPR-695 PO (22:31)
[2020-05-15] MEDS ORDERED: FAMO-63 PO (22:31)
== END 2020-05-15 22:45 | disposition home or self-care (01) ==
LOC: ER 18:20
DX: R07.89 Other chest pain (principal); M79.651 Pain in right thigh; E04.1 Nontoxic single thyroid nodule; R91.1 Solitary pulmonary nodule; E11.9 Type 2 diabetes mellitus without complications; I10 Essential (primary) hypertension; Z87.891 Personal history of nicotine dependence; Z88.5 Allergy status to narcotic agent; Z88.8 Allergy status to other drugs, medicaments and biological substances
CPT/HCPCS: 36415; 71275; 80053; 81001; 83605; 83690; 83735; 83880; 84484; 85025; 85379; 85610; 85730; 93005; 93971; 96361; 96374; 96375; 96376; 99285; J1100; J1885; J2360; J2405; J3010; J3490; J7030; Q9967